=== PATIENT | female | born 1970 | race Caucasian/White ===

== ENCOUNTER 2021-03-25 18:16 | Inpatient (IN) | payer OTHER ==
[~2021-03-25] VITALS: Ht 175.3 cm; Wt 127.2 kg
[2021-03-25 19:26] VITALS: BP 146/73
[2021-03-25 19:41] VITALS: BP 127/69
[2021-03-25 19:49] LABS: BE(vivo) 1.4 mmol/L (-2 to +3); HCO3 25.3 mmol/L (22.0-26.0); pH 7.442 (7.360-7.450); sO2 97.8 % (92.0-98.0)
[2021-03-25 21:53] VITALS: BP 137/71
[2021-03-25 22:25] LABS: ALBUMIN 2.7 g/dL (3.4-5.0); CALCIUM 8.6 mg/dL (8.5-10.1); CREATININE 0.8 mg/dL (0.6-1.0); PHOSPHORUS 4.1 mg/dL (2.5-4.9); POTASSIUM 3.9 mmol/L (3.5-5.1)
[2021-03-25 23:04] VITALS: BP 137/66
[2021-03-25 23:36] VITALS: BP 129/69
--- NOTE | 2021-03-25 23:39 | NUR ---
This RN received patient at 1910. Admitted patient to room 239. Discussed with admitting physician, and called in consults. Patient now on highflow 12 L. Patient alert and oriented and comfortable with plan of care. Will continue to monitor.
[2021-03-26] VITALS (32 sets, daily range): BP systolic 130–196; BP diastolic 69–110
[2021-03-26 05:39] LABS: HEMATOCRIT 36.8 % (37.0-47.0); HEMOGLOBIN 12.4 gm/dL (12.0-15.0); MCH 29.5 pg (26.0-34.0); MCHC 33.6 g/dL (28.0-37.0); MCV 87.9 fL (80.0-100.0); RBC 4.19 mil/uL (4.20-5.00); RDW 12.9 % (10.5-14.5); WBC 5.9 thou/uL (4.0-11.0)
[2021-03-26 05:58] LABS: ALBUMIN 2.6 g/dL (3.4-5.0); CALCIUM 8.3 mg/dL (8.5-10.1); CREATININE 0.6 mg/dL (0.6-1.0); DIRECT BILIRUBIN 0.1 mg/dL (<0.1-0.2); MAGNESIUM 2.1 mg/dL (1.8-2.4); POTASSIUM 4.5 mmol/L (3.5-5.1); TOTAL BILIRUBIN 0.4 mg/dL (0.2-1.0)
--- NOTE | 2021-03-26 09:42 | HC ---
[facility] [address] CONSULTATION Name: NAGI ESCUDERO Room #: 239-P ADM IN M.R.#: [id number] Admission: 03/25/21 Attend Phys: Chris Albrecht MD Discharge: Date of : 66 Report #: [id number] THIS REPORT FOR: cc: ZULMA - No family physician/PCP ZULMA - No family physician/PCP Juan Diego Herrera MD ~ DATE OF SERVICE: 03/26/2021 INFECTIOUS DISEASE CONSULTATION ATTENDING PHYSICIAN: Dr. Albrecht. REASON FOR EVALUATION: COVID-19 infection, complicated by pneumonitis, respiratory failure. HISTORY OF PRESENT ILLNESS: Chart reviewed, the patient was examined. This 50-year-old woman with known diabetes mellitus, also has asthma, more specifically exercise-induced reactive airway disease, who was admitted in transfer due to worsening pneumonitis and respiratory failure with a known diagnosis of COVID-19. She has been unvaccinated. She tested positive on 03/15/2021. Additionally, her daughter did as well. She was admitted there, but they did not have the capabilities of mechanical support, so she was transferred. She has been maintained on a nonrebreather at this point. She had received a broad spectrum therapy including directed to the coronavirus with remdesivir, she is day #4, also Actemra, corticosteroids, in addition to that empiric therapy with antibacterials. She is generally responsive at this time. Denies significant pain. She was found to have a markedly elevated blood sugar on admission. Otherwise, fairly unremarkable. ALLERGIES: None known. MEDICATIONS: Currently include enoxaparin, ascorbic acid, vancomycin, Zosyn, methylprednisolone, zinc, guaifenesin, insulin lispro, famotidine, remdesivir, tocilizumab. PAST MEDICAL HISTORY: As described above, diabetes mellitus type 2, exercise-induced asthma, history of obstructive sleep apnea, chronic back pain, chronic anemia, osteoarthritis, reflux, migraine headaches, obesity and hypertension. SOCIAL HISTORY: Former smoker. No illicit drug use. No ethanol. FAMILY HISTORY: Noncontributory. REVIEW OF SYSTEMS: Otherwise, unremarkable. [facility] [address] [place] [address] CONSULTATION Name: NAGI ESCUDERO Room #: 239-[facility] IN ..#: [id number] Admission: 03/25/21 Attend Phys: Chris Albrecht MD Discharge: Date of : 66 Report #: [id number] PHYSICAL EXAMINATION: GENERAL: She is in moderate distress. She is lucid, not dyspneic at rest, although with significant talking does become mildly dyspneic. She is obese. VITAL SIGNS: Temperature 98.9, pulse 55, respirations 29, blood pressure 130/110. SKIN: Warm, mildly diaphoretic. HEENT: Normocephalic. Extraocular muscles intact. Has high flow nasal cannula in place, 12 liters. NECK: Supple. LUNGS: Expiratory wheezes, scattered crackles. Few coarse sounds. HEART: Borderline bradycardic, appears to be regular. I do not appreciate a murmur. ABDOMEN: Obese, distended, firm, nontender. No peritoneal signs. GENITOURINARY AND RECTAL: Deferred. LABORATORY DATA: This morning, electrolytes: Sodium 139, potassium 4.5, chloride 104, bicarbonate is 25, anion gap of 10, BUN and creatinine 21 and 0.6, glucose of fasting 303. LFTs unremarkable. Albumin of 2.6, total protein 6.0, estimated GFR of 105. CBC: White count of 5.9, H and H 12.4 and 36.8, platelets of 219. Sed rate of 91. Ferritin 594. Procalcitonin less than 0.05. A chest x-ray on admission showed cardiomegaly, bilateral infiltrates. ASSESSMENT AND PLAN: COVID-19 infection, complicated by pneumonitis and respiratory failure. The patient with not well controlled diabetes mellitus, is certainly at risk for clinical deterioration. Continue broad spectrum empiric therapy with antibacterials. She is producing sputum. We will check sputum culture to exclude a secondary bacterial pneumonitis. She is right at the threshold, out of some of the treatment protocols given her positive test on 03/15/2021. We will continue current therapy as prescribed. Supportive care with oxygen therapy. <ELECTRONICALLY SIGNED> By: Juan Diego Herrera MD 03/26/21 0942 0601 0651 Juan Diego Herrera MD /nt
--- NOTE | 2021-03-26 10:41 | NUR ---
PT IS NOT PROGRESSING TOWARDS DISCHARGE AT THIS TIME, CURRENLY ON HIGH FLOW NASAL CANULA AT 15L, LUNG SOUNDS ARE COARSE, DESATS WHILE HAVING COUGHING LOW 87%, R FA IV WAS INFILTRATED, RAC STILL WORKING. PT IS AOX4, DISCUSSED CONCERNS ABOUT GOING BACK HOME TO TAKE CARE OF CASSIE (20YO) RECENT LOSS OF IN AUGUST LAST YEAR. HTN MEDICATION VASOTEC 1.25MG PIV ORDERED AND GIVEN. URINE OUTPUT IS GREATER THAN 30CC/HR SO FAR, BLOOD SUGAR IS RUNNING HIGH, MAY NEED TO BE CHANGED TO MODERATE SCALE DEPENDING ON LUNCH BS. PT HAD TWO RINGS L HAND, ONE RING R HAND, AND FITBIT WHICH WERE TAKEN OFF PER EDEMA/VASOCONSTRICTION CONCERNS BY RN, AND PLACED IN PT'S PERSONAL BAG WITH PATIENT WITNESSING. CENTRAL LINE ORDER GIVEN BY . WILL UPDATE NEEDED
--- NOTE | 2021-03-26 13:11 | NUR ---
VAT CONSULTED FOR PICC PLACEMENT. LEFT UPPER BASILIC VEIN PICC TRIMMED 50CM WITH 1CM EXTERNAL. TIP LOCATION VERIFIED WITH [employer] TECHNOLOGY. PT TOLERATED WELL. RELEASED FOR USE, PER HOSPITAL VASCULAR ACCESS POLICY.
[2021-03-27] VITALS (53 sets, daily range): BP systolic 99–183; BP diastolic 58–106
--- NOTE | 2021-03-27 02:37 | NUR ---
This RN placed patient on bipap. Patient had respiratory rate 30's-40's and was satting consistently 88-90 on optiflow. Desaturated when patient exerts energy or has a coughing fit. Tolerating bipap well so far, will continue to monitor.
[2021-03-27 04:35] LABS: HEMATOCRIT 36.7 % (37.0-47.0); HEMOGLOBIN 12.2 gm/dL (12.0-15.0); MCH 29.4 pg (26.0-34.0); MCHC 33.2 g/dL (28.0-37.0); MCV 88.4 fL (80.0-100.0); RBC 4.16 mil/uL (4.20-5.00); RDW 12.7 % (10.5-14.5); WBC 10.2 thou/uL (4.0-11.0)
[2021-03-27 04:41] LABS: ALBUMIN 2.5 g/dL (3.4-5.0); ANION GAP 9 mmol/L (7-16); BUN 21 mg/dL (7-18); CALCIUM 8.5 mg/dL (8.5-10.1); CHLORIDE 106 mmol/L (98-107); CO2 26 mmol/L (21-32); CREATININE 0.6 mg/dL (0.6-1.0); DIRECT BILIRUBIN < 0.1 mg/dL (<0.1-0.2); GLUCOSE 289 mg/dL (74-106); PHOSPHORUS 3.1 mg/dL (2.5-4.9); POTASSIUM 3.7 mmol/L (3.5-5.1); SGOT 16 U/L (15-37); SGPT 14 U/L (30-65); SODIUM 141 mmol/L (136-145); TOTAL BILIRUBIN 0.3 mg/dL (0.2-1.0); TOTAL PROTEIN 6.3 g/dL (6.4-8.2)
[2021-03-27 05:36] LABS: GLYCOHEMOGLOBIN (HGB A1C) 8.4 % (4.8-5.6)
--- NOTE | 2021-03-27 06:34 | NUR ---
Patient extremely anxious on bipap, needing frequent breaks and reassurance. Patient status and declining and patient is not progressing towards goals. Mechanical ventilation needs increasing.
--- NOTE | 2021-03-27 11:36 | NUR ---
ASSUMED CARE OF PATIENT AT 0600. SHE WAS ON BIPAP 14/6 RATE 10 FIO2 100%. SHE HAS BEEN RESTING AND TRYING TO SLEEP. STATES SHE IS UNCOMFORTABLE, BUT DOES NOT WANT TO TRY THE [facility]. SHE IS UNABLE TO TAKE A DEEP ENOUGH BREATH FOR HER MDI. WILL ADDRESS THE POSSIBLITY OF CHANGING TO A NEBULIZED TREATMENT. AT THIS TIME WILL MONITOR RESPIRATORY STATUS AND NOTIFY DR HERBERT OF ANY DECLINE IN STATUS.
--- NOTE | 2021-03-27 14:13 | NUR ---
PT IS NOT PROGRESSING TOWARDS DISCHARGE AT THIS TIME. PT IS STILL HAVIN DIARRHEA/LOOSE STOOL. HAVING INCREASED OXYGENATION NEEDS IS NOW ON BIPAP SINCE LAST NIGHT, WASN'T ABLE TO GET ANY SLEEP, IN OBVIOUS STATE OF AGITATION/ANXIETY AT THE BEGINNING OF THE SHIFT, PRESENTING SYMPTOMS OF HYPOXIA. DISCUSSED W/ REGARDING CARE PLAN FOR THE PT, STATED TO GIVE A CALL WHEN PT VOCALIZES SHE IS NO LONGER ABLE TO BREATHE EFFICIENTLY. PT HAS BEEN ORDERED PRECEDEX AND CARDENE WAS STARTED OVERNIGHT, IN CONJUNCTION BLOOD PRESSURE IS BETTER CONTROLLED. PT IS SEEN SLEEPING FOR THE MAJORITY OF THE SHIFT, UNABLE TO GET OFF BIPAP FOR LONG. ASKED IF PT WANTS RN TO CALL THE DTR AT HOME, PT REFUSED. WILL UPDATE NEEDED
[2021-03-28] VITALS (37 sets, daily range): BP systolic 101–167; BP diastolic 33–95
[2021-03-28 04:25] LABS: HEMATOCRIT 36.5 % (37.0-47.0); HEMOGLOBIN 12.4 gm/dL (12.0-15.0); MCH 29.2 pg (26.0-34.0); MCV 85.8 fL (80.0-100.0); RBC 4.26 mil/uL (4.20-5.00); RDW 12.5 % (10.5-14.5); WBC 12.5 thou/uL (4.0-11.0)
[2021-03-28 04:26] LABS: CALCIUM 8.2 mg/dL (8.5-10.1); CREATININE 0.7 mg/dL (0.6-1.0); POTASSIUM 3.3 mmol/L (3.5-5.1)
[2021-03-28 04:53] LABS: BE(vivo) -1.6 mmol/L (-2 to +3); HCO3 22.1 mmol/L (22.0-26.0); PCO2 34.5 mmHg (35.0-45.0); PO2 68.3 mmHg (80.0-100.0); pH 7.425 (7.360-7.450); sO2 94.2 % (92.0-98.0)
--- NOTE | 2021-03-28 05:10 | NUR ---
ASSUMED CARE OF PATIENT AT 1900. PATIENT REMAINS ON BIPAP ALL NIGHT, TOLERATING WELL. PATIENT NEEDS A LOT OF ENCOURAGEMENT AND REEDUCATION. EMOTIONAL SUPPORT PROVIDED. PATIENT GAVE THIS RN PERMISSION TO SPEAK WITH CLEMENTE CORNEJO UPDATED AND POC DISCUSSED. NOT PROGRESSIN TOWARDS POC GOALS.
--- NOTE | 2021-03-28 10:37 | NUR ---
PATIENT INTUBATED AT 0958.
[2021-03-28 12:09] LABS: BE(vivo) -2.8 mmol/L (-2 to +3); HCO3 22.9 mmol/L (22.0-26.0); PCO2 43.7 mmHg (35.0-45.0); PO2 99.3 mmHg (80.0-100.0); pH 7.338 (7.360-7.450); sO2 97.2 % (92.0-98.0)
--- NOTE | 2021-03-28 16:03 | NUR ---
50-year-old female who was a direct admission from [facility] for worsening respiratory status secondary to COVID-19 pneumonia. Noted as not vaccinated per the medical record. The patient tested positive on 03-15-21 and states that her daughter who lives with the patient also tested positive for Covid 19 as well and reports the daughter works in daycare where the daughter reports numerous outbreaks of staff and children with Covid. Upon admission the patient was started on IV Remdesiver, and IV steroids. Notably patient was intubated on 03-28-21 in the AM at 0958. Daughter Yeimi listed as next of kin/contact at [phone]. Attempted to reach x4 without success. Noted intubation and that nursing had spoken to daughter early AM of 03-28-21, did not leave a VM. CM will follow for discharge needs.
--- NOTE | 2021-03-28 17:34 | NUR ---
PATIENT NOT PRORESSING TOWARDS THE PLAN OF CARE. INTUBATED/SEDATED WITH FIO2 AT 100%. PATIENT'S FRIEND, CLEMENTE, WAS INFORMED OF THE INTUBATION. PATIENT'S DAUGHTER, ELI, WAS CALLED MULTIPLE TIMES TODAY POST-INTUBATION BUT THIS RN NEVER GOT A RESPONSE. WILL ATTEMPT TO CALL AGAIN.
[2021-03-29] VITALS (24 sets, daily range): BP systolic 99–164; BP diastolic 51–79
[2021-03-29 04:47] LABS: BE(vivo) -4.8 mmol/L (-2 to +3); HCO3 21.3 mmol/L (22.0-26.0); PCO2 43.3 mmHg (35.0-45.0); PO2 70.5 mmHg (80.0-100.0); sO2 92.7 % (92.0-98.0)
[2021-03-29 05:13] LABS: HEMATOCRIT 33.4 % (37.0-47.0); HEMOGLOBIN 11.2 gm/dL (12.0-15.0); MCH 29.3 pg (26.0-34.0); MCHC 33.6 g/dL (28.0-37.0); MCV 87.3 fL (80.0-100.0); PLATELET COUNT 246 thou/uL (150-400); RBC 3.83 mil/uL (4.20-5.00); RDW 12.6 % (10.5-14.5); WBC 20.3 thou/uL (4.0-11.0)
[2021-03-29 05:33] LABS: ALBUMIN 2.2 g/dL (3.4-5.0); CALCIUM 7.8 mg/dL (8.5-10.1); CREATININE 0.7 mg/dL (0.6-1.0); POTASSIUM 3.3 mmol/L (3.5-5.1); TOTAL BILIRUBIN 0.3 mg/dL (0.2-1.0); TOTAL PROTEIN 5.3 g/dL (6.4-8.2)
[2021-03-29 09:21] LABS: ABSOLUTE NEUTROPHILS 19.5 thou/uL (1.4-8.2); PLATELET ESTIMATE NORMAL
--- NOTE | 2021-03-29 09:29 | NUR ---
When IVF stopped, add water flush 250ml every 6hr.
--- NOTE | 2021-03-29 11:37 | EKG ---
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
--- NOTE | 2021-03-29 11:37 | NUR ---
Reviewed case in 03-29-21 LOS and plan for continued ICU care. CM will continue to follow.
--- NOTE | 2021-03-29 18:38 | NUR ---
PT IS NOT PROGRESSING TOWARDS DISCHARGE, EVIDENCED INCREASING NEED FOR SEDATION. PT TOLERATED THE PRONING WELL, WAS DONE BY THREE FOUR NURSE AND 1 RT. TUBE FEEDING RATE INCREASED TO 40 THIS SHIFT, PT IS TOLERATING OKAY, STIL CURRENTLY RUNNING THE SAME VENTILATOR SETTING SINCE THE MORNING. R SIDE OF THE LUNG IS MORE CLEAR THAN THE LEFT SO PT WAS TURNED TO THE R SIDE MORE FREQUENTLY TODAY. DTR OF THE PT CALLED AT THE END OF THE SHIFT, RN WAS BUSY IN THE ROOM WAS NOT ABLE TO ATTEND, CALLED BACK SOON POSSIBLE BUT NO ANSWER AFTER MULTIPLE TRIES. STILL ON THE INSULIN DRIP, WITH THE INCREASE OF TUBE FEED RATE, HAVING TO READJUST THE INSULIN GTT RATE. CONTINUING TO MONITOR AND WILL UPDATE NEEDED
--- NOTE | 2021-03-29 21:32 | NUR ---
ASSUMED CARE AT 1900. SPOKE TO PT'S FRIEND CLEMENTE AT 2009, GAVE UPDATE ON PT'S CONDITION, NO CONCERNS NOTED. PLAN TO SUPINATE ABOUT 2230. HAVE INCREASED INSULIN GTT TWICE FOR BLOOD SUGARS IN UPPER 200'S. WILL CONTINUE TO MONITOR.
[2021-03-30] VITALS (23 sets, daily range): BP systolic 99–134; BP diastolic 53–81
[2021-03-30 04:29] LABS: CREATININE 0.9 mg/dL (0.6-1.0)
[2021-03-30 04:38] LABS: HEMATOCRIT 32.7 % (37.0-47.0); MCH 29.8 pg (26.0-34.0); MCHC 33.7 g/dL (28.0-37.0); MCV 88.5 fL (80.0-100.0); RBC 3.69 mil/uL (4.20-5.00); RDW 12.9 % (10.5-14.5); WBC 18.2 thou/uL (4.0-11.0)
--- NOTE | 2021-03-30 12:56 | NUR ---
PATIENT PRONED AT 1240. 02 SATS MAINTAINED ABOVE 90% THROUGHOUT.
--- NOTE | 2021-03-30 17:29 | NUR ---
PATIENT'S DAUGHTER, ELI, CALLED FROM [phone] AND SHE WAS UPDATED AND EDUCATED ON THE PATIENT'S CONDITION AND PLAN OF CARE. PATIENT SLOWLY PROGRESSING TOWARDS THE PLAN OF CARE EVIDENCED BY DECREASED OXYGEN/SEDATION REQUIREMENTS.
[2021-03-31] VITALS (25 sets, daily range): BP systolic 101–169; BP diastolic 58–102
[2021-03-31 04:34] LABS: BE(vivo) 2.3 mmol/L (-2 to +3); PCO2 54.7 mmHg (35.0-45.0); PO2 68.1 mmHg (80.0-100.0); pH 7.343 (7.360-7.450); sO2 92.3 % (92.0-98.0)
[2021-03-31 05:20] LABS: HEMATOCRIT 34.8 % (37.0-47.0); HEMOGLOBIN 11.5 gm/dL (12.0-15.0); MCH 29.2 pg (26.0-34.0); MCHC 33.1 g/dL (28.0-37.0); MCV 88.3 fL (80.0-100.0); PLATELET COUNT 229 thou/uL (150-400); RBC 3.94 mil/uL (4.20-5.00); RDW 13.1 % (10.5-14.5); WBC 18.1 thou/uL (4.0-11.0)
[2021-03-31 05:23] LABS: ALBUMIN 2.1 g/dL (3.4-5.0); CREATININE 0.7 mg/dL (0.6-1.0); POTASSIUM 4.3 mmol/L (3.5-5.1); TOTAL BILIRUBIN 0.3 mg/dL (0.2-1.0); TOTAL PROTEIN 5.1 g/dL (6.4-8.2)
--- NOTE | 2021-03-31 06:14 | NUR ---
PT TOLERATED PRONE TO SUPINE VERY WELL, WOKE UP SLIGHTLY AFTER TURN, BUT DID NOT LAST LONGER THAN SEVERAL MINUTES. LUNGS DIMINISHED, STRONG COUGH AND GAG, MODERATE ORAL SECRETION, THIN AND STRINGY. SR, BP STABLE
[2021-03-31 10:20] LABS: ABSOLUTE NEUTROPHILS 16.8 thou/uL (1.4-8.2); PLATELET ESTIMATE NORMAL
--- NOTE | 2021-03-31 19:21 | NUR ---
1800HRS - CONTINUE CARE ORDERED. 1239HRS - PT'S FRIEND GEORGE CALLED AND UPDATED 16OOHRS - PT PRONED. 1800HRS - PT'S DAUGHTER CALLED
[2021-04-01] VITALS (18 sets, daily range): BP systolic 108–139; BP diastolic 53–83
--- NOTE | 2021-04-01 06:43 | NUR ---
PT TOLERATED SUPINATION WELL, REQUIRED INCREASE IN SEDATION WHILE PRONED SHE STARTED MOVING HEAD BACK AND FORTH AND PUSHING UP ON BED. TOLERATING TF WELL, VSS, ADEQUATE URINE OUTPUT. MULTIPLE DIFFERENT REPORTS BETWEEN RT AND RNS REGARDING WHERE ETT SHOULD BE AT LIP, CXR OBTAINED TO ENSURE APPROPRIATE PLACEMENT
--- NOTE | 2021-04-01 18:59 | NUR ---
1600 HRS- PT PRONE.
[2021-04-02] VITALS (18 sets, daily range): BP systolic 118–161; BP diastolic 54–81
[2021-04-02 05:00] LABS: HEMATOCRIT 35.5 % (37.0-47.0); HEMOGLOBIN 11.8 gm/dL (12.0-15.0); MCH 29.5 pg (26.0-34.0); MCHC 33.2 g/dL (28.0-37.0); MCV 88.8 fL (80.0-100.0); RDW 12.7 % (10.5-14.5); WBC 12.9 thou/uL (4.0-11.0)
[2021-04-02 05:13] LABS: CALCIUM 8.1 mg/dL (8.5-10.1); CREATININE 0.7 mg/dL (0.6-1.0); POTASSIUM 4.8 mmol/L (3.5-5.1)
--- NOTE | 2021-04-02 06:47 | NUR ---
No acute events overnight. Pt supined at 0400 with no problems. Pt remains intubated and sedated.
--- NOTE | 2021-04-02 18:00 | NUR ---
1315- ASSUMED CARE OF THIS PATIENT. PATIENT PRONED AT 1340, TOLERATED WELL. OXYGENATING WELL WITH CURRENT SETTINGS. NO ACUTE CHANGES NOTED.
[2021-04-03] VITALS (23 sets, daily range): BP systolic 107–157; BP diastolic 59–87
[2021-04-03 05:36] LABS: GLYCOHEMOGLOBIN (HGB A1C) 8.7 % (4.8-5.6)
--- NOTE | 2021-04-03 18:16 | NUR ---
0900 HRS - FRIEND GEORGE CALLED AND INFORMED. SETTING CHANGED, 35% 1605 HRS - PT PRONED.
--- NOTE | 2021-04-03 20:00 | NUR ---
PTS DAUGHTER CALLED AND GIVEN A COND REPORT.
[2021-04-04] VITALS (11 sets, daily range): BP systolic 106–166; BP diastolic 57–87
--- NOTE | 2021-04-04 05:00 | NUR ---
PT REPOSITIONED TO BACK FROM PRONING FOR 12 HOURS.
[2021-04-04 05:27] LABS: BE(vivo) 14.5 mmol/L (-2 to +3); HCO3 41.3 mmol/L (22.0-26.0); PCO2 60.3 mmHg (35.0-45.0); PO2 77.6 mmHg (80.0-100.0); pH 7.453 (7.360-7.450); sO2 95.7 % (92.0-98.0)
[2021-04-04 05:46] LABS: HEMATOCRIT 35.8 % (37.0-47.0); MCH 29.7 pg (26.0-34.0); MCHC 33.6 g/dL (28.0-37.0); MCV 88.5 fL (80.0-100.0); PLATELET COUNT 176 thou/uL (150-400); RBC 4.04 mil/uL (4.20-5.00); RDW 12.8 % (10.5-14.5); WBC 8.7 thou/uL (4.0-11.0)
--- NOTE | 2021-04-04 06:00 | NUR ---
REMAINS INTUBATED AND SEDATED. VSS FIO2 35 % 2000 CC UO THIS SHIFT. DEUCE TUBE FEEDING. PROGRESSING TOWARD GOALS. WILL CONT TO MONITOR
[2021-04-04 06:16] LABS: ALBUMIN 2.7 g/dL (3.4-5.0); CALCIUM 8.3 mg/dL (8.5-10.1); CREATININE 0.6 mg/dL (0.6-1.0); POTASSIUM 4.6 mmol/L (3.5-5.1); TOTAL BILIRUBIN 0.4 mg/dL (0.2-1.0); TOTAL PROTEIN 5.6 g/dL (6.4-8.2)
[2021-04-04 08:43] LABS: ABSOLUTE NEUTROPHILS 6.6 thou/uL (1.4-8.2); PLATELET ESTIMATE NORMAL
--- NOTE | 2021-04-04 16:33 | NUR ---
1135HRS - TUBE FEED CHANGE. 1435HRS - PT'S ESA ROBERTO CALLED AND WAS UPDATED ON PT'S STATUS. REPORTED THAT SHE WILL UPDATE PT'S DAUGHTER. 1630HRS - PT PRONED. HOLISTERED LEFT ON PT FACE TO SUPPORT ETT PER DR. ALBARRAN ON 04/03 1021HRS NOTES. "PLEASE CHANGE TAPE TO HOLISTER". WITNESSED WITH RT OF THE DAY THAT DR. ALBARRAN FELT THE TAPE WAS CUTTING INTO PT'S FACE DURING PRONE DUE TO SWELLING TO FACE.
--- NOTE | 2021-04-04 21:45 | NUR ---
This RN spoke to Yeimi Rivas, suad daugher at 2100. Discussed patient status and plan of care. Expressed desire to visit mother.
--- NOTE | 2021-04-04 21:46 | NUR ---
This RN spoke with Dr. Herrera regarding isolation status. Received orders to DC enhanced precautions.
[2021-04-05] VITALS (21 sets, daily range): BP systolic 95–188; BP diastolic 50–108
[2021-04-05 05:11] LABS: ANION GAP < 0 mmol/L (7-16); BUN 27 mg/dL (7-18); CALCIUM 8.4 mg/dL (8.5-10.1); CHLORIDE 100 mmol/L (98-107); CO2 42 mmol/L (21-32); CREATININE 0.6 mg/dL (0.6-1.0); GLUCOSE 213 mg/dL (74-106); POTASSIUM 4.6 mmol/L (3.5-5.1); SODIUM 138 mmol/L (136-145)
[2021-04-05 05:24] LABS: HEMATOCRIT 37.3 % (37.0-47.0); HEMOGLOBIN 12.5 gm/dL (12.0-15.0); MCH 29.5 pg (26.0-34.0); MCHC 33.4 g/dL (28.0-37.0); MCV 88.3 fL (80.0-100.0); RBC 4.23 mil/uL (4.20-5.00); RDW 12.8 % (10.5-14.5); WBC 10.8 thou/uL (4.0-11.0)
--- NOTE | 2021-04-05 06:41 | NUR ---
Patient un-proned at 0300 this morning. Tolerated well. Patient is progressing towards goals.
--- NOTE | 2021-04-05 10:48 | NUR ---
ASSUMED CARE OF PT AT 0700 DR. SANCHEZ AT BEDSIDE AT 0830, NO NEW ORDERS GIVEN
--- NOTE | 2021-04-05 23:38 | NUR ---
This RN did a sedation vacation on patient for about 20 minutes. Patient became extemely hyptertensive, with systolics in the 190's-200's. Patient also became tachycardiac with HRs in the 100's-110's. RN had to turn sedation back on and patient stabilized. Lowering down sedatives and will continue to monitor.
[2021-04-06] VITALS (13 sets, daily range): BP systolic 95–195; BP diastolic 54–100
[2021-04-06 05:02] LABS: CALCIUM 8.3 mg/dL (8.5-10.1); CREATININE 0.6 mg/dL (0.6-1.0); POTASSIUM 4.4 mmol/L (3.5-5.1)
[2021-04-06 05:13] LABS: HEMATOCRIT 35.5 % (37.0-47.0); MCH 29.8 pg (26.0-34.0); MCHC 33.8 g/dL (28.0-37.0); MCV 88.2 fL (80.0-100.0); RBC 4.02 mil/uL (4.20-5.00); WBC 8.5 thou/uL (4.0-11.0)
[2021-04-06 09:36] LABS: BE(vivo) 14.3 mmol/L (-2 to +3); HCO3 40.1 mmol/L (22.0-26.0); PCO2 53.5 mmHg (35.0-45.0); PO2 63.2 mmHg (80.0-100.0); pH 7.493 (7.360-7.450); sO2 93.4 % (92.0-98.0)
--- NOTE | 2021-04-06 19:57 | NUR ---
This RN spoke to Yeimi, daughter, at 1945. Updated on plan of care and patient status.
--- NOTE | 2021-04-06 20:50 | NUR ---
This RN did a sedation vacation for 20 minutes. Patient gets tachypneic breathing in the 30's, hyperensive with systolics in the 190's. Patient also tachycardiac HR in he 100's-110's. Patient will open eyes spontaneously but will not track. Inconsistently follows commands, but will move all extremities. Lifts head forward and body. Tries to talk and mouth words over ETT. RN had to turn sedation back on but will continue to wean down.
[2021-04-07] VITALS (45 sets, daily range): BP systolic 89–185; BP diastolic 42–95
[2021-04-07 05:28] LABS: HEMATOCRIT 33.6 % (37.0-47.0); HEMOGLOBIN 11.3 gm/dL (12.0-15.0); MCH 29.9 pg (26.0-34.0); MCHC 33.7 g/dL (28.0-37.0); MCV 88.9 fL (80.0-100.0); RBC 3.78 mil/uL (4.20-5.00); RDW 13.5 % (10.5-14.5); WBC 9.1 thou/uL (4.0-11.0)
[2021-04-07 05:46] LABS: CALCIUM 8.5 mg/dL (8.5-10.1); CREATININE 0.6 mg/dL (0.6-1.0); POTASSIUM 3.9 mmol/L (3.5-5.1)
--- NOTE | 2021-04-07 18:48 | NUR ---
PATIENT PROGRESSING WELL. TOLERATED 1 HOUR AND 15 MIN OF CPAP TRIAL. PATIENT'S DAUGHTER AND FRIEND UPDATED ON PATIENT STATUS. NOTIFIED OF POSSIBILITY OF TRACHEOSTOMY NEED NEXT WEEK, DEPENDING ON HOW CPAP TRIALS GO OVER THE WEEKEND.
[2021-04-08] VITALS (37 sets, daily range): BP systolic 86–188; BP diastolic 43–95
[2021-04-08 04:22] LABS: ANION GAP < 0 mmol/L (7-16); BUN 29 mg/dL (7-18); CALCIUM 8.4 mg/dL (8.5-10.1); CHLORIDE 98 mmol/L (98-107); CO2 40 mmol/L (21-32); CREATININE 0.6 mg/dL (0.6-1.0); GLUCOSE 227 mg/dL (74-106); POTASSIUM 3.9 mmol/L (3.5-5.1); SODIUM 137 mmol/L (136-145)
[2021-04-08 04:23] LABS: HEMATOCRIT 33.3 % (37.0-47.0); HEMOGLOBIN 11.2 gm/dL (12.0-15.0); MCH 29.7 pg (26.0-34.0); MCHC 33.7 g/dL (28.0-37.0); MCV 87.9 fL (80.0-100.0); RBC 3.79 mil/uL (4.20-5.00); RDW 13.5 % (10.5-14.5); WBC 8.4 thou/uL (4.0-11.0)
[2021-04-08 09:12] LABS: BE(vivo) 12.9 mmol/L (-2 to +3); HCO3 37.7 mmol/L (22.0-26.0); PCO2 48.4 mmHg (35.0-45.0); PO2 78.6 mmHg (80.0-100.0); pH 7.509 (7.360-7.450); sO2 96.5 % (92.0-98.0)
--- NOTE | 2021-04-08 14:00 | NUR ---
Chart review, during los and unite rounds. Vent, cpap trial. Possible will go for trach on sunday or sun next week. Nutritional support. COVID +, but out of Isolation. Will cont following as needed for dc needs.
[2021-04-08 16:09] LABS: BE(vivo) 13.2 mmol/L (-2 to +3); HCO3 38.1 mmol/L (22.0-26.0); PCO2 48.9 mmHg (35.0-45.0); PO2 78.5 mmHg (80.0-100.0); pH 7.509 (7.360-7.450); sO2 96.4 % (92.0-98.0)
--- NOTE | 2021-04-08 17:30 | NUR ---
1115 Patient's friend updated on pt condition. pt tolerated 1 hour of CPAP trial this am. will attempt longer trial this afternoon. 1200- Tube feeds resumed per Dr. Joseph. 1730 patient tolerated CPAP trial with change from Propofol to Precedex. patient more awake/alert this afternoon.
--- NOTE | 2021-04-08 22:00 | NUR ---
UPDATED PT DAUGHTER ON PT CONDITION AND PLAN OF CARE. ALL QUSTIONS ANSWERED
[2021-04-09] VITALS (61 sets, daily range): BP systolic 102–182; BP diastolic 55–100
[2021-04-09 03:15] LABS: HEMATOCRIT 34.9 % (37.0-47.0); HEMOGLOBIN 11.8 gm/dL (12.0-15.0); MCH 29.7 pg (26.0-34.0); MCHC 33.8 g/dL (28.0-37.0); MCV 87.8 fL (80.0-100.0); RBC 3.97 mil/uL (4.20-5.00); RDW 13.6 % (10.5-14.5); WBC 8.8 thou/uL (4.0-11.0)
[2021-04-09 03:26] LABS: CALCIUM 8.6 mg/dL (8.5-10.1); CREATININE 0.6 mg/dL (0.6-1.0); POTASSIUM 3.1 mmol/L (3.5-5.1)
[2021-04-09 04:40] LABS: BE(vivo) 13.3 mmol/L (-2 to +3); HCO3 38.4 mmol/L (22.0-26.0); PCO2 50.1 mmHg (35.0-45.0); PO2 107.8 mmHg (80.0-100.0); pH 7.502 (7.360-7.450); sO2 98.2 % (92.0-98.0)
[2021-04-09 08:31] LABS: BE(vivo) 10.7 mmol/L (-2 to +3); HCO3 35.2 mmol/L (22.0-26.0); PCO2 46.1 mmHg (35.0-45.0); PO2 95.7 mmHg (80.0-100.0); pH 7.501 (7.360-7.450); sO2 97.7 % (92.0-98.0)
--- NOTE | 2021-04-09 15:24 | NUR ---
Patient has been off of sedatives (Fentanyl and Versed) per Dr. Atkinson orders in order to potentially extubate. Patient is restless but able to be reoriented. Precedex titrated up as needed, see eMAR. patient;s daughter is at bedside and updated on plan of care.
--- NOTE | 2021-04-09 17:00 | NUR ---
Patient was extubated at 1555. Doing well with Face shield at 50% FiO2 and 15L. Patient is very confused, reoriented frequently by nursing staff and family. Pressure injury noted to right cheek which was hidden under anchor fast. family made aware of skin breakdown.
[2021-04-10] VITALS (33 sets, daily range): BP systolic 91–145; BP diastolic 49–90
[2021-04-10 03:14] LABS: HEMATOCRIT 36.2 % (37.0-47.0); HEMOGLOBIN 12.2 gm/dL (12.0-15.0); MCH 29.8 pg (26.0-34.0); MCHC 33.8 g/dL (28.0-37.0); MCV 87.9 fL (80.0-100.0); RBC 4.11 mil/uL (4.20-5.00); RDW 13.1 % (10.5-14.5); WBC 7.6 thou/uL (4.0-11.0)
[2021-04-10 03:30] LABS: CALCIUM 8.6 mg/dL (8.5-10.1); CREATININE 0.5 mg/dL (0.6-1.0); POTASSIUM 3.3 mmol/L (3.5-5.1)
--- NOTE | 2021-04-10 11:14 | NUR ---
Patient's daughter here to visit. Updated on plan of care. Actively titrating precedex down. Patient on 4L NC at this time.
[2021-04-11] VITALS (25 sets, daily range): BP systolic 114–166; BP diastolic 57–102
[2021-04-11 04:03] LABS: HEMATOCRIT 34.8 % (37.0-47.0); HEMOGLOBIN 12.1 gm/dL (12.0-15.0); MCHC 34.7 g/dL (28.0-37.0); MCV 86.6 fL (80.0-100.0); RBC 4.02 mil/uL (4.20-5.00); RDW 13.4 % (10.5-14.5); WBC 6.7 thou/uL (4.0-11.0)
[2021-04-11 04:29] LABS: CALCIUM 8.6 mg/dL (8.5-10.1); CREATININE 0.6 mg/dL (0.6-1.0); POTASSIUM 3.3 mmol/L (3.5-5.1)
--- NOTE | 2021-04-11 06:31 | NUR ---
PT REMAIN ALERT AND ORIENT TIMES 1-2. ABLE TO STATE HER NAME AND PLACE. PT CONSTANTLY ASK ABOUT HER DAUGHTER TORY. ALL OF HER CONCERNS, WORRIES AND QUESTIONS SURROUNDED HER DAUGHTER. THIS RN PHONED TORY SO THAT PT WOULD BE ABLE TO SPEAK WITH HER AND TO ASSURE THE PT THAT ALL WAS WELL WITH HER. PT WAS SATISFIED IN SPEAKING WITH HER DAUGHTER AND SOON WENT TO SLEEP FOR 2HRS. PRECEDEX BEING TITRATED SLOWLY. HALDOL WAS GIVEN ONCE DURING THE NIGHT. SR PER MONITOR. SLOW PROGRESS TOWARDS DC GOALS. WILL CONTINUE TO MONITOR.
[2021-04-11 08:28] LABS: MAGNESIUM 2.1 mg/dL (1.8-2.4); PHOSPHORUS 3.7 mg/dL (2.5-4.9)
--- NOTE | 2021-04-11 18:45 | NUR ---
PT IS NOT PROGRESSING TOWARDS DISCHARGE AT THIS TIME, PT WAS SEEN BY PT/OT WAS NOT ABLE TO PARTICIPATE WELL DUE TO WEAKNESS, PT IS HAVING DIFFICULTIES MOVING HER L ARM, WAS ABLE TO MOVE THE L WRIST THOUGH. PT IS ALSO EXPERIENCING DELIRIUM STILL, PRECEDEX HAS BEEN WEANED OFF, TRANSFER ORDERS WERE GIVEN AWAITNIG BED AT THIS TIME. PT IS TEARFUL, PT IS ALSO INCONTINENT, PASSING MULTIPLE LIQUID BOWEL MOVEMENT, WHICH WAS PRESENT PRIOR TO ADMISSION, TPN WILL BE DISCONTINUED AFTER THIS LAST BAG, SLT SAW THE PT, PT WAS PLACED ON A DIET, THOUGH SHE NEEDS TO BE FED NOW. SHE REFUSED DINNER AT THIS TIME, TOLERATED ICECHIPS, PT DOES HAVE ALL FOUR SIDE RAILS ON, PT IS UNABLE TO CATCH HER SELF IN THE CASE OF A FALL SO SIDERAILS ARE ON FOR PT SAFETY NOT RESTRAINT REASONS. PT REQUIRES MORE STRENGTH OR POSSIBLE REHAB THINKING OF DISCHARGE. RN SIGNING OFF AT THIS TIME.
[2021-04-12] VITALS (25 sets, daily range): BP systolic 131–178; BP diastolic 74–109
[2021-04-12 05:53] LABS: HEMATOCRIT 39.6 % (37.0-47.0); HEMOGLOBIN 13.5 gm/dL (12.0-15.0); MCH 29.8 pg (26.0-34.0); MCV 87.6 fL (80.0-100.0); RBC 4.52 mil/uL (4.20-5.00); RDW 14.1 % (10.5-14.5); WBC 10.9 thou/uL (4.0-11.0)
[2021-04-12 06:15] LABS: CREATININE 0.6 mg/dL (0.6-1.0); POTASSIUM 3.2 mmol/L (3.5-5.1)
--- NOTE | 2021-04-12 08:05 | NUR ---
ASSUME CARE 1900. PT/VITALS STABLE. BP SOMETIMES RUN HIGH, A/O X 4 BUT HAS EPISODES OF CONFUSION AND FORGETFULNESS. DENIES ANY PAIN. POOR TOLERANCE TO ACTIVITY/ WILL BENEFIT FROM PT/OT EVAL AND TREATMENT. COMMUNICATES NEEDS APPROPRIATELY. FREQUENT DIARRHEA NOTED THROUGH THE NIGHT. ELECTROLYTE PROTOCOL IN PLACE. ASSESSMENT CHARTED. PROGRESSING WELL TOWARDS PLAN OF CARE. PLAN IS A POSSIBLE DISCHARGE TO STEP DOWN UNIT FOR CONTINUUM OF CARE. WILL CONTINUE TO MONITOR AND FOLLOW WITH POC
--- NOTE | 2021-04-12 15:16 | NUR ---
ALEXANDRA reviewed chart and spoke with nursing and attending physician. Pt with orders to transfer out of ICU to cc/tele. Pt is out of Enhanced Isolation precautions. Pt was extubated and is on 3L of O2 via NC. Pt is on IV abx and IV steroids. Psych consult completed today. PT/OT have started working with pt. ALEXANDRA left voice message for pt's dtr, Yeimi, to provide update and discuss discharge plans. Contact info for ALEXANDRA provided. ALEXANDRA discussed case with attending physician and 5N rn rehabilitation. 5N consult ordered to evaluate pt for possible inpt acute rehab. Will need insurance auth for post-acute placement. ALEXANDRA is following to assist as needed with discharge planning.
--- NOTE | 2021-04-12 21:12 | NUR ---
PT IS PROGRESSING TOWARDS DISCHARGE, PT SEEN BY PT/OT TODAY WELL FOR PSYCHOLOGY AND 5N REHAB STAFF MEMBER FOR ASSESSMENT OF CURRENT NEEDS. PT STILL HAD DIARRHEA TODAY AND WAS CAUGHT UP ON POTASSIUM LEVEL BY THE END OF THE SHIFT. FMS STILL IN PLACE. PT IS BECOMING MORE DELIRIOUS/WITHDRAWN/FLAT ICU ADMISSION PROGRESSES AND IS NEEDING PERSONAL CONTACT WITH FAMILY MEMBERS AND REHAB WORKUP FOR PROPER MANAGMENT OF CARE. AWAITING BED AT THIS TIME. RN SIGNING OFF
[2021-04-13] VITALS (7 sets, daily range): BP systolic 110–164; BP diastolic 70–96
--- NOTE | 2021-04-13 00:09 | NUR ---
ASSUMED PATIENT CARE AT APPROXIMATELY 0000 A TRANSFER FROM ICU. PATIENT IS ALERT AND ORIENTED TO SELF, SITUATION ONLY AND IS PLEASANTLY CONFUSED. BREATHING STABLE ON TWO LITERS NASAL CANNULA EVIDENCED BY ASSESSMENT AND SPOT OXYGENATION CHECK.
--- NOTE | 2021-04-13 00:23 | NUR ---
PT ORIENTED X2-3. SHE HAS SOME CONFUSION BUT IS COOPERATIVE AND PLEASANT. DENIES ANY PAIN. SPO2 >90% ON 2L NC. AROUND 2029, PT'S DTR (ELI) CALLED UNIT FOR UPDATE. PT HAD TRANSFER ORDERS TO CCT UNIT. REPORT GIVEN TO RECEIVING RN. PT TRANSFERED OUT OF ICU AROUND 2344. PT DID NOT WANT HER DTR CALLED TONIGHT WITH UPDATE OF ROOM CHANGE. RN OSEAS WILL CALL DTR IN THE MORNING. PROGRESSING SLOWLY TOWARD POC GOALS.
--- NOTE | 2021-04-13 14:08 | NUR ---
REQUEST FOR INSURANCE AUTHORIZATION HAS BEEN FAXED TO [facility] AT [facility] WITH PENDING REF # [id number]. INFORMATION SENT TO [phone]. [employer]'S CONTACT # IS [phone] OPT 1 EXT [id number]. [employer] HAS BEEN NOTIFIED.
--- NOTE | 2021-04-13 17:28 | NUR ---
5N accepted clinically they are in process of submitting for auth.
--- NOTE | 2021-04-13 18:01 | NUR ---
NAGI HAD A PRODUCTIVE DAY. SHE WORKED WITH PT, OT AND SPEECH THERAPY. DIET ADVANCED TO REGULAR CONSISTENCY AND THIN LIQUIDS. SHE WAS ABLE TO PROGRESS THROUGHOUT THE DAY TO FEED HERSELF, EVENTUALLY TO EVEN USE A FORK WITH HER RIGHT HAND. SHE WAS INTERMITTENTLY CONFUSED, BUT WOULD BE REDIRECTABLE AND REMEMBER CONVERSATIONS FROM EARLIER IN THE DAY. SHE WAS EMOTIONAL AT TIMES WHE SHE "DIDN'T KNOW WHAT TO BE DOING." I REITERATED OUR GOALS OF THE DAY TO WORK ON ROM IN BED WHILE NOT WORKING WITH THERAPY, TO BE ABLE TO FEED HERSELF AND EVENTUALLY TO BRUSH TEETH. SHE REQUIRED SET UP ON TASKS, BUT WAS MOTIVATED TO PERFORM ON HER OWN WITH MIN ASSIST AT TIMES. REMAINS ON 2L NC. [place]INGTON CATHETER AND RECTAL TUBE REMAIN IN PLACE. I UPDATED HER FRIEND, CLEMENTE, OVER THE PHONE TWICE AND ASSISTED PATIENT TO CALL HER USING HER OWN CELL PHONE.
[2021-04-14 04:16] VITALS: BP 141/81
[2021-04-14 06:05] LABS: HEMATOCRIT 37.8 % (37.0-47.0); HEMOGLOBIN 12.5 gm/dL (12.0-15.0); MCH 29.3 pg (26.0-34.0); MCHC 33.1 g/dL (28.0-37.0); MCV 88.5 fL (80.0-100.0); RBC 4.28 mil/uL (4.20-5.00); RDW 14.7 % (10.5-14.5); WBC 8.1 thou/uL (4.0-11.0)
[2021-04-14 06:23] LABS: CALCIUM 8.9 mg/dL (8.5-10.1); CREATININE 0.6 mg/dL (0.6-1.0); POTASSIUM 3.2 mmol/L (3.5-5.1)
[2021-04-14 07:58] VITALS: BP 166/78
[2021-04-14 11:32] VITALS: BP 128/83
--- NOTE | 2021-04-14 13:50 | NUR ---
PT ALERT AND ORIENTED X4, CONFUSED AT TIMES AND ANXIOUS. DENIES ANY CHEST PAIN. ON 2L OF OXYGEN, NO SIGNS OF DISTRESS NOTED. PT TAKEN DOWN FOR A HEAD CT. GAVE PT A BATH, BED CHANGED, PT STATED FEELING BETTER. FALL PRECUATIONS IN PLACE. DENIES ANY NEEDS NESTOR. WILL CONTINUE TO MONITOR
--- NOTE | 2021-04-14 14:08 | NUR ---
SPOKE W/ [facility] FROM [facility]. [facility] REQUESTED UPDATED THERAPY INFORMATION FOR Pt FROM LAST FEW DAYS WHICH WAS PROVIDED. 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 STILL AWAITING RESPONSE ON INSURANCE AUTH FOR INPATIENT REHAB. [employer] - [phone] (PHONE)
[2021-04-14 15:33] VITALS: BP 120/75
--- NOTE | 2021-04-14 17:17 | NUR ---
DC planning efforts and needs discussed with pt's dtr Mable via phone. She lives in [place] and works fulltime. She does not lives with the pt but is home most weekends and stays with her mom. 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 She lives in a one level home with 3 steps to enter. No DME prior. Her employer is working on paperwork for her short term dis/sick leave benefits. Her insurance is through her employer. [facility] acute rehab has submitted additional clinical today to [facility] to support the auth request. They are awaiting their response. Mable is hopeful she can go to rehab here. Options for SNF/HH and potential care needs discussed. Mable indicates she would be able to take leave from work and care for her mom if needed. Should she need snf in the future she would be interested in [facility] or a facility [place] closer to her and pt's support network. The pt has another dtr who lives in [place]. Will f/u with pt/dtr once insurance response is rec'd. Support provided.
--- NOTE | 2021-04-14 17:50 | NUR ---
FAXED FACESHEET TO BRIANA/LASHAE AT [facility]. THEY WILL CHECK TO SEE IF THEY CAN ACCEPT INSURANCE AND LET US KNOW 04/15/21.
--- NOTE | 2021-04-14 17:55 | NUR ---
FMS TAKEN OUT PT TOLERATED IT WELL.
--- NOTE | 2021-04-14 18:22 | NUR ---
RECEIVED VOICEMAIL FROM [facility]/ [facility]. AUTHORIZATION FOR ACUTE REHAB WAS APPROVED BY THEIR ICING MIXER. APPROVED FOR 7 DAYS STARTING TODAY 04/14/21 W/ UPDATE DUE TO [facility] ON 04/21/21. [facility]'S PHONE IS [phone] AND FAX [phone]. AUTH #[id number]. Pt CAN ALSO ADMIT TOMORROW 04/15/[address] [facility] HENRY, HE WOULD PREFER TO KEEP Pt ON ACUTE UNTIL TOMORROW WITH PLAN FOR D/C TO REHAB ON 04/15/21. WILL NEED TO CALL [facility] W/ UPDATE ON ADMISSION DAY TO REHAB. SPOKE W/ LISA SILVA REGARDING THIS.
[2021-04-14 19:35] LABS: BE(vivo) 7.1 mmol/L (-2 to +3); HCO3 30.6 mmol/L (22.0-26.0); PCO2 39.3 mmHg (35.0-45.0); PO2 64.1 mmHg (80.0-100.0); pH 7.509 (7.360-7.450); sO2 94.3 % (92.0-98.0)
[2021-04-14 19:58] VITALS: BP 133/80
[2021-04-15 04:53] VITALS: BP 138/91
[2021-04-15 06:10] LABS: HEMATOCRIT 38.6 % (37.0-47.0); HEMOGLOBIN 13.1 gm/dL (12.0-15.0); MCH 29.6 pg (26.0-34.0); MCHC 33.8 g/dL (28.0-37.0); MCV 87.6 fL (80.0-100.0); RBC 4.4 mil/uL (4.20-5.00); RDW 14.4 % (10.5-14.5); WBC 8.6 thou/uL (4.0-11.0)
[2021-04-15 06:29] LABS: CALCIUM 9.2 mg/dL (8.5-10.1); CREATININE 0.6 mg/dL (0.6-1.0); POTASSIUM 3.1 mmol/L (3.5-5.1)
--- NOTE | 2021-04-15 07:54 | NUR ---
SLEPT PART OF SHIFT. REMAINS ORIENTED BUT FORGETFUL AND POOR SHORT TERM MEMORY. WORKING ON GOALS AND PLAN OF CARE FOR NOC. ASSIST TO TURN NEEDED. DENIES COMPLAINTS OF PAIN. REORIENT NEEDED. PLANS FOR REHAB TODAY.
[2021-04-15 08:00] VITALS: BP 141/79
[2021-04-15 12:00] VITALS: BP 143/85
[2021-04-15] MEDS ORDERED: IPRAT-ALBUT 0.5-3 ML INH (13:24)
[2021-04-15] MEDS ORDERED: LANTUS SUBQ (13:25)
[2021-04-15] MEDS ORDERED: MUCUS RLF DM E1 EACH PO (13:25)
[2021-04-15] MEDS ORDERED: PULMICORT0.5 MG/21 INH (13:25)
[2021-04-15] MEDS ORDERED: PREDNISONE 10 M10 M1 PO (13:26)
--- NOTE | 2021-04-15 13:52 | NUR ---
Pt dcing to [facility] acute rehab today. Their liason is calling pt's dtr to confirm the room number and visitor policy. [facility] cm to follow for dc planning. No covid now test required. Nursing to call report.
--- NOTE | 2021-04-15 16:07 | NUR ---
PATIENT REPORT CALLED TO RABIA LAZAR ON [facility]. NO QUESTIONS OR CONCERNS AT TIME OF REPORT. PATIENT INFORMED. TELE REMOVED. CARRINGTON REMOVED. PICC LEFT IN PLACE. PATIENT STABLE AT TIME OF TRANSFER.
== END 2021-04-15 16:13 | DRG 207 ==
LOC: ICU 18:16 → 2N 18:16 → EDSEX 18:16 → ICU 04-11 22:10 → 2N 04-12 23:59
PROVIDERS: Hospitalist; Internal Medicine Pulmonary Disease; Nurse Practitioner Family; Pediatrics; Specialist; ADMIT Hospitalist; ATTEND Hospitalist
PROC: XW033E5 Introduction of Remdesivir Anti-infective into Peripheral Vein, Percutaneous Approach, New Technology Group 5 (ICD-10-PCS; principal; 2021-03-25)
PROC: XW033H5 Introduction of Tocilizumab into Peripheral Vein, Percutaneous Approach, New Technology Group 5 (ICD-10-PCS; principal; 2021-03-25)
PROC: 5A0935A Assistance with Respiratory Ventilation, Less than 24 Consecutive Hours, High Flow/Velocity Cannula (ICD-10-PCS; 2021-03-26)
PROC: 02HV33Z Insertion of Infusion Device into Superior Vena Cava, Percutaneous Approach (ICD-10-PCS; 2021-03-26)
PROC: 5A09357 Assistance with Respiratory Ventilation, Less than 24 Consecutive Hours, Continuous Positive Airway Pressure (ICD-10-PCS; 2021-03-27)
PROC: 0BH18EZ Insertion of Endotracheal Airway into Trachea, Via Natural or Artificial Opening Endoscopic (ICD-10-PCS; 2021-03-28)
PROC: 5A1955Z Respiratory Ventilation, Greater than 96 Consecutive Hours (ICD-10-PCS; 2021-03-28)
PROC: 5A0935A Assistance with Respiratory Ventilation, Less than 24 Consecutive Hours, High Flow/Velocity Cannula (ICD-10-PCS; 2021-04-10)
PROC: 5A0935A Assistance with Respiratory Ventilation, Less than 24 Consecutive Hours, High Flow/Velocity Cannula (ICD-10-PCS; 2021-04-11)
DX: U07.1 COVID-19 (principal); J12.82 Pneumonia due to coronavirus disease 2019; G92 Toxic encephalopathy; J80 Acute respiratory distress syndrome; J15.9 Unspecified bacterial pneumonia; Z68.41 Body mass index [BMI] 40.0-44.9, adult; I10 Essential (primary) hypertension; D64.9 Anemia, unspecified; G47.33 Obstructive sleep apnea (adult) (pediatric); E11.22 Type 2 diabetes mellitus with diabetic chronic kidney disease; K21.9 Gastro-esophageal reflux disease without esophagitis; G89.29 Other chronic pain; M54.9 Dorsalgia, unspecified; M19.90 Unspecified osteoarthritis, unspecified site; E66.01 Morbid (severe) obesity due to excess calories; J45.909 Unspecified asthma, uncomplicated; G43.909 Migraine, unspecified, not intractable, without status migrainosus; Z87.891 Personal history of nicotine dependence; Z79.899 Other long term (current) drug therapy
CPT/HCPCS: 10078; 10081; 10203; 27000; 50455

== ENCOUNTER 2021-04-15 10:00 | Inpatient (IN) | payer OTHER ==
[~2021-04-15] VITALS: Ht 152.4 cm; Wt 118.4 kg
[2021-04-15] MEDS ORDERED: IPRAT-ALBUT 0.5-3 ML INH (13:24)
[2021-04-15] MEDS ORDERED: LANTUS SUBQ (13:25)
[2021-04-15] MEDS ORDERED: MUCUS RLF DM E1 EACH PO (13:25)
[2021-04-15] MEDS ORDERED: PULMICORT0.5 MG/21 INH (13:25)
[2021-04-15] MEDS ORDERED: PREDNISONE 10 M10 M1 PO (13:26)
--- NOTE | 2021-04-15 16:45 | NUR ---
PT ARRIVED TO UNIT FROM CCU VIA BED. PT GOT COVID 03/14 AND WAS TREATED AT HOME. PT CAME TO HOSPITAL AND WAS INTUBATED 03/28-. PT HAS OXYGEN ON 2.5L AT THIS TIME. NO SIGNS OF SOB OR COUGH. PT CARRINGTON WAS TAKEN OUT TODAY AT 1500. NO SIGNS OF VOIDING AT THIS TIME. PT HAS WEAKNESS TO RT ARM AND USES LEFT ARM TO RAISE UP RT ARM. PT HAS LOST WT DUE TO HOSPITALIZATION. PT WAS 330 AND NOW 261. PT LUNGS CLEAR AND DIMINSHED TO BASES. PT HAS HYPOACITVE BS. PT HAS SCAB TO LEFT UPPER ARM, PICC LINE TO LEFT ARM. PT STATED SHE HAD ANOTHER PICC PRIOR TO THIS ONE. PT HAS SCAB TO RT CHEEK ON FACE FROM INTUBATION COWAN. PT HAS BRUISES TO ABD FROM INJECTIONS. NO SIGNS OF EDEMA TO LOWER EXT. 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 HISTORY OF LYMPH NODE TAKEN OUT ON RT SIDE FROM RT CYST TAKEN OUT OF BREAST. HX OF DM, GERD, HTN, PNA, AND VAPOR USE. 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 PT ABLE TO RECALL CERTAIN THINGS THAT HAS HAPPENED PRIOR TO ADMIT. PT WAS HAVING WEIRD DREAMS ABOUT HER MOM, AND THINGS HAPPENING TO HER.
[2021-04-15 17:00] VITALS: BP 125/76
[2021-04-15 19:45] VITALS: BP 127/79
--- NOTE | 2021-04-16 01:06 | NUR ---
PT ASSESSMENT COMPLETED AND VSS. MEDS GIVEN ORDERED AND WELL TOLERATED. PT VOIDED LARGE AMOUNT IN BEDPAN. PT REMAINS CONFUSED. PLEASANT. SUPPORT FRIEND AT BEDSIDE. SAT WNL ON NC. ASST WITH FREQUENT REPOSITION FOR COMFORT. SLEEPING ON AND OFF. WILL CONTINUE TO MONITOR FREQUENTLY.
[2021-04-16 06:20] LABS: HEMATOCRIT 37.5 % (37.0-47.0); HEMOGLOBIN 12.6 gm/dL (12.0-15.0); MCH 29.4 pg (26.0-34.0); MCHC 33.6 g/dL (28.0-37.0); MCV 87.7 fL (80.0-100.0); RBC 4.28 mil/uL (4.20-5.00); RDW 14.5 % (10.5-14.5); WBC 5.5 thou/uL (4.0-11.0)
[2021-04-16 06:39] LABS: CALCIUM 8.7 mg/dL (8.5-10.1); CREATININE 0.6 mg/dL (0.6-1.0)
[2021-04-16 07:02] LABS: POTASSIUM 2.9 mmol/L (3.5-5.1)
[2021-04-16 07:10] VITALS: BP 123/71
--- NOTE | 2021-04-16 07:32 | NUR ---
PT VOIDED LARGE AMOUNTS 2 TIMES DURING THE NIGHT USING THE BEDPAN. BLADDER SCAN THIS MORNING WAS 0.
[2021-04-16 09:24] LABS: MAGNESIUM 1.9 mg/dL (1.8-2.4)
--- NOTE | 2021-04-16 15:21 | NUR ---
ASSUMED CARE OF PT AT 0700 THIS MORNING. PT IS RESTING IN BED AND IS A/OX3 AND STATED SHE DOES GET CONFUSED AT TIMES. SKIN IS INTACT WITH NO TENTING. PT TESTED POSITIVE FOR COVID 03/14. AC&HS, O2 @ 2.5L/HOUR, SCD'S IN PLACE, LT UA PICC, ASSESSMENTS CHARTED AND OTHERWISE UNREMARKABLE. SMALL SCAB NOTICED ON RT CHEEK AND LT KNEE. BOTH COVERED WITH BORDER FOAM. CALL LIGHT AND OTHER NEEDS ARE WITHIN REACH. PHYS THPY AND OT WILL BE WORKING WITH PT. PT HAS NO COMPLAINTS. MEDS AND TX GIVEN NEEDED AND SCHEDULED. WILL MONITOR AND NOTE ANY CHANGES.
[2021-04-16 22:00] VITALS: BP 126/79
--- NOTE | 2021-04-17 00:46 | NUR ---
PT ASSESSMENT COMPLETED AND VSS. MEDS GIVEN ORDERED AND WELL TOLERATED. FALL PRECAUTIONS IN PLACE. VOIDING MODERATE AMOUNT OF DARK YELLOW URINE PER BEDPAN. ASST WITH REPOSITION FOR COMFORT. PT ANXIOUS. PROVIDED MUCH EMOTIONAL. SAT WNL ON NC. RT TREATMENTS CONTINUE. PT SLEEPING WELL. WILL CONTINUE TO MONITOR FREQUENTLY.
[2021-04-17 07:15] VITALS: BP 120/75
--- NOTE | 2021-04-17 08:34 | NUR ---
PT LYING IN BED THIS AM. PT DENIES ANY PAIN. PT HAS OXYGEN ON 3L NC. PT IS NOT SOA. PT LBM TODAY. PT VOIDING WITHOUT ANY DIFFICULTY. PT HAS WEAKNESS TO LEGS BILATERALLY. PT UP WITH ASSIST X2 PERSONS. PT GETS TEARFUL ABOUT LOSS OF THIS PAST YEAR. PT HAS ABRASION TO RT CHEEK ON FACE, PT ALSO HAS OLD PICC LINE SITE ABOVE PICC LINE ON LEFT ARM.
--- NOTE | 2021-04-17 09:30 | NUR ---
PT WAS ABLE TO [place] [facility] [place] [facility] [place] PT VOIDED AT THIS TIME AND BACK TO [facility].
--- NOTE | 2021-04-17 11:46 | NUR ---
SPOKE TO DR. HENRY AND ORDER OBTAINED TO REMOVE PICC LINE. NO IV MEDS. LINE REMOVED PER POLICY
--- NOTE | 2021-04-17 15:00 | NUR ---
PT UP TO BSC TO VOID PRIOR TO TRANSFER BACK TO BED. PT WAS UP IN W/C ALL THIS AM. PT WANTED TO REST.
[2021-04-17 19:25] VITALS: BP 112/57
--- NOTE | 2021-04-18 01:04 | NUR ---
PT ASSESSMENT COMPLETED AND VSS. MEDS GIVEN ORDERED AND WELL TOLERATED. FALL PRECAUTIONS IN PLACE. VOIDING LARGE AMOUNT OF DARK YELLOW URINE PER BEDPAN. ASST WITH REPOSITION FOR COMFORT. SAT WNL ON NC. SLEEPING WELL. WILL CONTINUE TO MONITOR FREQUENTLY. INSULIN GIVEN WITH SNACK.
[2021-04-18 08:00] VITALS: BP 133/79
--- NOTE | 2021-04-18 08:40 | NUR ---
PT LYING IN BED THIS AM. PT DENIES ANY PAIN. PT HAS OXYGEN ON 2L NC. PT DOES STILL HAS SOME SLIGHT SOB WITH ACTIVITY. PT LUNGS CLEAR. PT USES BED RANKIN TO VOID. PT HAS BM COUPLE OF DAYS AGO. PT HAS SCD'S ON AT THIS TIME. PT HAVING FIRST DAY OF THERAPY TODAY.
--- NOTE | 2021-04-18 09:08 | NUR ---
WOUND CONSULT; THE PATIENT HAS NO WOUNDS, ONLY LOOSLY ADHERANT SCABS. ONE TO THE RIGHT SIDE OF FACE AND THE OTHER ON THE LEFT ARM. NO S/S OF INFECTION. NO NEED TO FOLLOW. RECCOMMENDATIONS; -PAINTED WITH BETADINE -d/c WOUND CONSULT. DISCUSSED WITH RABIA.
[2021-04-18 09:42] LABS: CALCIUM 8.9 mg/dL (8.5-10.1); CREATININE 0.5 mg/dL (0.6-1.0); MAGNESIUM 1.8 mg/dL (1.8-2.4); POTASSIUM 3.1 mmol/L (3.5-5.1)
--- NOTE | 2021-04-18 09:50 | NUR ---
HX of COVID. Chart review. Cm visited with daina at bedside. cm cont to wear face mask and shield during visit. intro to team meeting and discharge planning. Note she on o2 per nasal cannula and reports she never needed oxygen before. 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 no dme, manage own medication and drives vehicle. No hh or rehab in the past. Will cont following needed for dc needs.
--- NOTE | 2021-04-18 12:22 | NUR ---
PT RECIEVED KDUR 40MEQ PO FOR LOW K LEVEL. PT STATED K MAKES HER HAVE BM'S. WOUND CARE SEEN PT TODAY FOR ABRASION TO RT CHEEK AND LEFT UPPER ARM.
--- NOTE | 2021-04-18 12:46 | NUR ---
Assess due to new admit to inpatient rehab for debility following extended hospitalization/hx COVID. Visit with pt during lunch, states appetite slowly returning. Did eat 100% of all meals yesterday. States usual wt around 300 lb. Gained high weight 329 lb with fluid overload in ICU. Now 2 different wts 280 vs 261 lb which would represent significant loss. A1C 8.7-pt reports relatively new dx diabetes and was trying to change eating habits prior to hospitalization but had not received formal diabetes education. Would like some more information on diet once stabilizes on rehab unit and prior to discharge. Low nutrition risk
--- NOTE | 2021-04-18 16:21 | NUR ---
ADM KDUR 40MEQ X1 FOR LOWER K LEVEL. THIS IS SECOND DOSE TODAY.
--- NOTE | 2021-04-18 18:35 | NUR ---
PT HAD A GOOD FIRST DAY OF THERAPY. PT STATED SHE IS WORE OUT SINCE WORKING WITH THERAPY TODAY.
[2021-04-18 19:17] VITALS: BP 128/82
--- NOTE | 2021-04-18 23:39 | NUR ---
PT ASSESSMENT COMPLETED AND VSS. MEDS GIVEN ORDERED AND WELL TOLERATED. FALL PRECAUTIONS IN PLACE. VOIDING LARGE AMOUNT OF DARK YELLOW URINE PER BEDPAN. ASST WITH REPOSITION FOR COMFORT. INSULIN GIVEN ORDERED WITH SNACK. SLEEPING WELL AT THIS TIME. WILL CONTINUE TO MONITOR FREQUENTLY.
[2021-04-19 07:15] VITALS: BP 105/63
--- NOTE | 2021-04-19 10:41 | NUR ---
ASSUMED CARE AT 0700. PATIENT IS ALERT AND ORIENTED X4, BUT FORGETFUL. PATIENT HAS SOME LEFT SIDED WEAKNESS. LUNGS ARE DEMINISHED. 02 SAT 2-3 L PER N/C. CONINUES ON RESPIRATORY TX ORDERED. PATIENT IS UP WITH 1-2 STAFF AND GAIT BELT, WITH WALKER TO AMBULATE PATIENT IN THE [place]. FALL AND SAFETY PROTOCOLS IN PLACE. GERALD PAIN AT THIS TIME. LEFT ARM DRESSING IS DRY AND INTACT. CONTINUES TO PROGRESS TOWARDS D/C GOALS. WILL CONTINUE TO MONITER
--- NOTE | 2021-04-19 13:20 | NUR ---
Team meeting, recommendation, dressing mod assist for lower body. transfers max assist. 35ft fww. Cont. to requiring oxygen per nasal cannula. Patient spouse and still having hard times with emotion. Re team with dc 05/03 hh ( pt, ot, nursing,), daughter to stay with her for a while. Will need to follow up with pcp on driving and working. Fww at dc.
[2021-04-19 19:28] VITALS: BP 132/74
--- NOTE | 2021-04-20 00:52 | NUR ---
Assumed care on 04/19/21 @ 1900, Denies Shortness of Air on 2L of O2. Dressing on left arm removed at patient's request d/t itching from the wound care tape that was applied to reinforce the dressing. Dressing removed, entire area cleaned with normal salaine and 2x2 guaze. Picc site bruised, oinsertion site noted, no bleeding or drainage noted to site. 1" bandage applied. IV insertion site noted, no drainage redness or bleeding noted. 3.3 bandage applied. A pink area that patient reports is related to the abrasions on her cheek noted. 1" bandage applied. Toileted via bedpan, urine output noted. Will continue to monitor as per unit protocol.
[2021-04-20 07:40] LABS: HEMOGLOBIN 11.3 gm/dL (12.0-15.0); MCH 29.8 pg (26.0-34.0); MCHC 33.2 g/dL (28.0-37.0); MCV 89.8 fL (80.0-100.0); RBC 3.78 mil/uL (4.20-5.00); RDW 15.3 % (10.5-14.5); WBC 5.3 thou/uL (4.0-11.0)
--- NOTE | 2021-04-20 07:48 | NUR ---
ASSUMED CARE AT 0700. PATIENT IS ALERT AND ORIENETED X4,BUT FORGETFUL AT TIMES. PATIENT DIANA'S, DISH CLOTH INSPECTOR ARE EQUAL. LUNGS ARE DEMINISHED. 02 AT 2L PER N/C. PATIENT CONTINUES ON RESPIRATORY TX. UP WITH ASSIST OF 2 STAFF [place] BEL[place] [facility] [place] NADYA COLORED URINE. FALL AND SAFETY PROTOCOLS IN PLACE. DENIES PAIN AT THIS TIME. CONTINUES TO PROGRESS TOWARDS D/C GOALS. WILL CONTINUE TO MONITER.
[2021-04-20 07:50] LABS: CALCIUM 8.9 mg/dL (8.5-10.1); CREATININE 0.5 mg/dL (0.6-1.0); POTASSIUM 3.8 mmol/L (3.5-5.1)
[2021-04-20 08:00] VITALS: BP 133/86
--- NOTE | 2021-04-20 14:40 | NUR ---
spoke with her daughter vickie agrees with dcp, she did say the community is having a building appraiser for mom medical expensive on 05/01/21 if she can attend, but in not ready we understand. I will get flma paperwork up to hospital when bank has ready for mom. thank you per vickie.
--- NOTE | 2021-04-20 15:24 | NUR ---
1515 PATIENT WAS ABLE TO TRANSFER FROM W/C TO THE TOILET IN THE BATHROOM,BUT WAS NOT ABLE TO TRANSFER FROM THE TOILET TO HER W/C. SLIDE BOARD USED FROM TOILET TO W/C WITH A MAX ASSIST OF 2 STAFF AND GAIT BELT. THE SLIDE BOARD WAS THEN USED TO TRANSFER THE PATIENT FROM W/C TO THE BED. RESPIRATORY HERE TO DO TX. WILL CONTINUE TO MONITER.
[2021-04-20 19:06] VITALS: BP 130/89
--- NOTE | 2021-04-21 01:08 | NUR ---
PT ASSESSMENT COMPLETED AND VSS. MEDS GIVEN ORDERED AND WELL TOLERATED. FALL PRECAUTIONS IN PLACE. VOIDING LARGE AMOUNT PER BEDPAN. ASST WITH REPOSITION FOR COMFORT. INSULIN GIVEN ORDERED WITH SNACK. PT DENIES NEEDS. SAT WNL ON NC. PT WORRIED BECAUSE SHE IS NOT ABLE TO STAND VERY WELL. PROVIDED MUCH EMOTIONAL SUPPORT. SLEEPING WELL. WILL CONTINUE TO MONITOR FREQUENTLY.
[2021-04-21 08:03] VITALS: BP 138/97
--- NOTE | 2021-04-21 08:04 | NUR ---
ASSUMED CARE AT 0700. PATIENT IS ALERT AND ORIENTED X4. PATIENT DIANA'S, VOLUNTEER SERVICES MANAGER ARE EQUAL. LUNGS ARE DEMINISHED. CONTINUES ON 02 AT 2L PER N/C. PATIENT CONTINUES ON RESPIRATORY TX. ABD IS SOFT WITH BSX4. VOIDING NADYA COLORED URINE. UP IN BED FOR BREAKFAST. UP WITH MAX ASSIST 2 PEOPLE. FALL AND SAFETY PROTOCOLS IN PLACE. DENIES PAIN AT THIS TIME. COTINUES TO PROGRESS SLOWLY TOWARDS D/C GOALS. WILL CONTINUE TO MONITER.
[2021-04-21 20:00] VITALS: BP 140/81
--- NOTE | 2021-04-22 02:35 | NUR ---
PT ASSESSMENT COMPLETED AND VSS. MEDS GIVEN ORDERED AND WELL TOLERATED. FALL PRECAUTIONS IN PLACE. PT VOIDING LARGE AMOUNT PER BEDPAN. PT CONTINUES TO BE MORE ORIENTED. INSULIN GIVEN ORDERED. SNACK PROVIDED AT HS. SLEEPING WELL AT THIS TIME. WILL CONTINUE TO MONITOR FREQUENTLY. SAT WNL ON 1L NC.
[2021-04-22 08:00] VITALS: BP 128/72
--- NOTE | 2021-04-22 13:23 | NUR ---
Chart review, cont. with discharge planning as needed. Anticipated dc on or with home health.
--- NOTE | 2021-04-22 16:29 | NUR ---
PT ALERT AND ORIENTED TIMES FOUR. VSS. PT DENIES PAIN. SOA ON EXCERTION. PT WORKS WELL WITH PT/OT. PT UP TO BSC WITH STANDBY ASSIST. PT TOLERATES MEDS AND MEALS. PT DAUGHTER AT BEDSIDE THIS EVENING. PT PROGRESSING TOWRADS POC GOALS.
[2021-04-22 20:00] VITALS: BP 155/90
--- NOTE | 2021-04-22 23:49 | NUR ---
PT ASSESSMENT COMPLETED AND VSS. MEDS GIVEN ORDERED AND WELL TOLERATED. FALL PRECAUTIONS IN PLACE. UP TO THE BATHROOM WITH ASST/GAIT/WHEELCHAIR PIVOT. PT WAS ABLE TO STAND WITH ASST AND PIVOT. VOIDING LARGE AMOUNT OF YELLOW URINE. BG 68 THIS EVENING. SNACK PROVIDED AND NOW BG IS 96. ASST WITH REPOSITION FOR COMFORT. SLEEPING WELL AT THIS TIME. WILL CONTINUE TO MONITOR FREQUENTLY.
--- NOTE | 2021-04-23 07:00 | NUR ---
PT SAT 93-94 ON RA WITH SPOT CHECKS DURING THE NIGHT. THIS MORNING AT 0500 AM SAT 91%. PLACED PT ON NC AGAIN.
[2021-04-23 07:15] VITALS: BP 145/93
--- NOTE | 2021-04-23 15:12 | NUR ---
ASSUMED CARE AT 0700. PATIENT IS ALERT AND ORIENTED X4. PATIENT DIANA'S, PATIENT IS UP TO THE BATHROOM TO VOID NADYA COLORED URINE BY STAND PIVOT SIT. LUNGS ARE CLEAR AND DEMINISHED. 02 AT 1L PER N/C. PATIENT CONTINUES ON RESPIRATORY TXS. ABD IS SOFT WITH BSX4. FALL AND SAFETY PROTOCOLS IN PLACE. DENIES PAIN AT THIS TIME. CONTINUES TO PROGRESS SLOWLY TOWARDS D/C GOALS. WILL CONTINUE TO MONITER.
[2021-04-23 17:26] VITALS: BP 158/107
[2021-04-23 19:15] VITALS: BP 145/93
--- NOTE | 2021-04-23 23:11 | NUR ---
PT ASSESSMENT COMPLETED AND VSS. MEDS GIVEN ORDERED AND WELL TOLERATED. FALL PRECAUTIONS IN PLACE. PT WALKED TO THE BATHROOM WITH ASST/GAIT/WALKER. STEADY. VOIDING LARGE AMOUNT OF DARK YELLOW URINE. SAT SPOT CHECK 93-94% ON RA. SUPPORTIVE DAUGHTER AT BEDSIDE EARLY DURING SHIFT. PT VERY TIRED. SLEEPING WELL AT THIS TIME. WILL CONTINUE TO MONITOR FREQUENTLY.
[2021-04-24 07:38] VITALS: BP 175/102
--- NOTE | 2021-04-24 08:49 | NUR ---
ASSUMED CARE AT 0700. PATIENT IS ALERT AND ORIENTED X4. PATIENT DIANA'S, FURNITURE MOVER DRIVER ARE EQUAL. LUNGS ARE CLEAR AND DEMINISHED. PATIENT CONTINUES ON RA WITH O2 STAT AT 95% PATIENT CONTINUES ON RESPIRATORY TX. ABD IS SOFT WITH BSX4. UP WITH GAIT BELT AND WALKER AND ASSIST OF 1 STAFF TO AMBULATE TO THE BATHROOM TO VOID NADYA COLORED URINE. FALL AND SAFETY PROTOCOLS IN PLACE, DENIES PAIN AT THIS TIME. CONTINUES TO PROGRESS TOWARDS D/C GOALS. WILL CONTINUE TO MONITER.
[2021-04-24 08:54] VITALS: BP 175/102
[2021-04-24 11:12] VITALS: BP 152/84
[2021-04-24 19:48] VITALS: BP 136/76
--- NOTE | 2021-04-25 04:24 | NUR ---
ASSUMED CARE AT 1900 OF 04/24. PATIENT IS A&OX4. DENIES PAIN AND SOB. MODERATE ASSIST OF 1 USING GB AND WALKER TO TRANSFER AND AMBULATE TO THE BATHROOM. SOB NOTED AT EXERTION, PATIENT ABLE TO CATCH BREATH AFTER RESTING, O2Sat REMAINS ABOVE 92%. CURRENTLY ON ROOM AIR AND [id number] SPOT CHECKS IS 95%. PATIENT HAD A BM. APPEARS TO BE SLEEPING ON AND OFF DURING HOURLY ROUNDS. FALL PRECAUTIONS IN PLACE, CALL LIGHT W/IN REACH. WILL CONTINUE TO MONITOR.
[2021-04-25 07:15] VITALS: BP 154/91
--- NOTE | 2021-04-25 09:29 | NUR ---
Nutrition follow up: Pt noted with stable weight. Intakes remain good with >75% avg at meals. BM 04/25. BS range 101-236 x 48 hrs. SS insulin and oral DM meds in place; on steroid. DM education to be done prior to d/c per pt request. Low nutrition risk.
--- NOTE | 2021-04-25 11:03 | NUR ---
ASSUMED CARE AT 0700. PATIENT IS ALERT AND ORIENTEDX4. PATIENT DIANA'S, BACK UP WORKER ARE EQUAL. LUNGS ARE CLEAR AND DEMINISHED. PATIENT CONTINUES ON RESPIRATORY TX. ABD IS SOFT WITH BSX4. UP TO THE BATHROOM WITH ASSIST OF 1 STAFF AND WALKER AND GAIT BELT. VOIDING NADYA COLORED URINE. UP IN W/C FOR MEALS. FALL AND SAFETY PROTOCOLS IN PLACE. DENIES PAIN AT THIS TIME. CONTINUES TO PROGRESS TOWARDS D/C GOALS. WILL CONTINUE TO MONITER.
[2021-04-25 19:12] VITALS: BP 169/98
--- NOTE | 2021-04-26 04:29 | NUR ---
ASSUMED CARE AT 1900 OF 04/25. A&OX4. VSS. ASSIST OF 1 USING GB AND WALKER FOR TRANSFERS AND AMBULATION TO THE BATHROOM TO VOID YELLOW URINE. SLEEPING DURING HOURLY ROUNDS, ABLE TO TURN SELF IN BED. FALL PRECAUTIONS IN PLACE, CALLLIGHT W/IN REACH WILL CONTINUE TO MONITOR.
[2021-04-26 07:15] VITALS: BP 125/71
[2021-04-26 07:31] LABS: ABSOLUTE NEUTROPHILS 5.3 thou/uL (1.4-8.2); BASOPHILS 0.5 % (0.0-2.0); EOSINOPHILS 0.7 % (0.0-3.0); HEMATOCRIT 34.3 % (37.0-47.0); HEMOGLOBIN 11.5 gm/dL (12.0-15.0); LYMPHOCYTES 26.2 % (24.0-44.0); MCH 29.6 pg (26.0-34.0); MCHC 33.5 g/dL (28.0-37.0); MCV 88.3 fL (80.0-100.0); MONOCYTES 9.7 % (1.0-8.0); PLATELET COUNT 238 thou/uL (150-400); POLYS 62.9 % (36.0-66.0); RBC 3.88 mil/uL (4.20-5.00); RDW 14.7 % (10.5-14.5); WBC 8.4 thou/uL (4.0-11.0)
[2021-04-26 07:46] LABS: ANION GAP 9 mmol/L (7-16); BUN 15 mg/dL (7-18); CALCIUM 8.9 mg/dL (8.5-10.1); CHLORIDE 104 mmol/L (98-107); CO2 30 mmol/L (21-32); CREATININE 0.5 mg/dL (0.6-1.0); GLUCOSE 111 mg/dL (74-106); MAGNESIUM 1.7 mg/dL (1.8-2.4); POTASSIUM 3.4 mmol/L (3.5-5.1); SODIUM 143 mmol/L (136-145)
[2021-04-26 08:00] VITALS: BP 125/71
--- NOTE | 2021-04-26 11:11 | EKG ---
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: KEEGAN : 1970 Requested By: Yeimy Phoenix Order Number: [id number] MD: Nilton Ospina Measurements Intervals Raphine Rate: 83 P: 49 ID: [id number] QRS: 0 QRSD: 98 T: 36 QT: 377 QTc: 443 Interpretive Statements Sinus rhythm Abnormal R-wave progression, late transition Probable left ventricular hypertrophy Baseline wander in lead(s) V4 No previous ECG available for comparison Electronically Signed On 04-26-2021 11:10:59 CDT by Nilton Ospina [email or web address] <ELECTRONICALLY SIGNED> By: Nilton Ospina MD, [facility] 04/26/21 1110 05 05 Nilton Ospina MD, FACC /EPI
--- NOTE | 2021-04-26 12:28 | NUR ---
team meeting recommendation: had ekg r/t heaviness in chest and feeling better. loose stools. On Room air and still gets SOA but recoveries quickly. Change dc date to 04/29, with improvements, HH ( pt, ot, nursing, ). FWW.
[2021-04-26 13:41] LABS: TROPONIN-I <0.06 ng/mL (<0.06)
--- NOTE | 2021-04-26 17:15 | NUR ---
ASSUMED CARE OF PT AT 0700. PT A&OX4. WILL CONTINUE TO MONITOR
[2021-04-26 19:15] VITALS: BP 139/85
--- NOTE | 2021-04-27 04:24 | NUR ---
ASSUMED CARE AT 1900 OF 04/26. PATIENT IS A&OX4, DENIES PAIN OR SOB. ASSIT OF 1 USING GB AND WALKER FOR TRANSFERS AND ABMULATION TO BATHROOM TO VOID YELLOW URINE. PATIENT REPORTED FEELING HOT AND SWEATY, BG CHECKED AROUND 0200 WAS 87. DENIES DIZZINESS, BLURRED VISION OR WEAKNESS. PATIENT GIVEN ORANGE JUICE AND SOME SNACKS. CALL LIGHT WITHIN REACH, WILL CONTINUE TO MONITOR.
[2021-04-27 07:15] VITALS: BP 132/83
--- NOTE | 2021-04-27 10:32 | NUR ---
ASSUMED CARE AT 0700. PATIENT IS ALERT AND ORIENTEDX4. PATIENT DIANA'S, RETAIL BANKING MANAGER ARE EQUAL. LUNGS ARE CLEAR AND DEMINISHED. ABD IS SOFT WITH BSX4. PATIENT UP WITH ASSIST OF 1 STAFF AND GAIT BELT TO AMBULATE TO BATHROOM TO VOID NADYA COLORED URINE. UP ON SIDE OF BED FOR MEALS. FALL AND SAFETY PROTOCOLS IN PLACE. DENIES PAIN AT THIS TIME. CONTINUES TO PROGRESS SLOWLY TOWARDS D/C GOALS. WILL CONTINUE TO MONITER.
--- NOTE | 2021-04-27 11:09 | NUR ---
cm spoke with daughter vickie, via phone call. she agree with dcp. vickie and daina good friend will pick her up on sunday, only one will come in to get her to the car. Dc earlier in day r/t long drive home. Provider plus will deliver fww prior to dc on . Cont working on hh that goes to [place] ADA paper work went out in mail today.
--- NOTE | 2021-04-27 15:49 | HC ---
[facility] [place] [address] CONSULTATION Name: NAGI ESCUDERO Room #: 503- ADM IN M.R.#: [id number] Admission: 04/15/21 Attend Phys: Juan Antonio Connelly MD Discharge: Date of : 66 Report #: [id number] THIS REPORT FOR: cc: ZULMA - [facility] family physician/PCP ZULMA - [facility] family physician/PCP Robinson Gregorio PhD ~ DATE OF SERVICE: 04/25/2021 NEUROBEHAVIORAL STATUS EXAM ATTENDING PHYSICIAN: Juan Antonio Connelly MD PROGRESSIVE CARE NURSE: Robinson Gregorio, PhD CLINICAL PRESENTATION: The patient is a 50-year-old female, admitted to the rehabilitation unit at [facility] for a comprehensive inpatient rehabilitation program. She was admitted to the hospital on 03/26/2021 with COVID-19 pneumonia and respiratory failure. She was diagnosed on 03/14/2021 with COVID-19 plus and initially treated at home. Her condition deteriorated leading to her hospitalization. She was admitted to ICU and intubated from 03/28/2021 to 04/09/2021. The patient was given comprehensive treatment including remdesivir, steroids and antibiotics. The patient was encephalopathic following extubation with paranoid behaviors. Her diagnoses on admission to the rehabilitation unit was critical illness myopathy, acute toxic encephalopathy, COVID-19, acute respiratory failure, on ventilator; dysphagia, type 2 diabetes mellitus with an A1c of 8.7, asthma, obstructive sleep apnea with home CPAP and noncompliance, obesity, anemia, hypertension and hypokalemia. A complete description of her medical condition and history can be found in her medical records. Neuropsychological consultation was requested to provide assistance in the assessment of cognitive and emotional status and to provide recommendations and services. Prior to this most recent admission, the patient was living independently at her home. Her is reported to have in August of 2020. She has two children. 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 She is a high school graduate. She does not report a prior history of treatment for depression or anxiety. She was independent with driving and instrumental activities of daily living prior to this most recent medical event. TECHNIQUES UTILIZED: Clinical interview, review of medical records, staff consultation and behavioral observation, mini mental status exam 2 standard version, brief verbal fluency assessment and clock drawing. EXAMINATION FINDINGS: The patient was alert and cooperative with the [facility] [address] [place] [address] CONSULTATION Name: NAGI ESCUDERO Room #: 503-P [facility] IN M.R.#: [id number] Admission: 04/15/21 Attend Phys: Juan Antonio Connelly MD Discharge: Date of : 66 Report #: [id number] assessment. She accurately described events surrounding her admission. There is no evidence of aphasia. Her thoughts are logical and goal oriented. There is no evidence of thought disorder. She does not report auditory or visual hallucinations. She describes her symptoms to include depression, anxiety, inconsistent sleep, decreased speed of processing and that she is more easily distracted. Her daughter indicates that the initial period of confusion and disorientation appears to have resolved, although she does not feel like her mother's functioning is back to within normal limits. Performance on the MMSE 2 brief version is within normal limits with a raw score of 15 and 16. She was 2/3 for immediate recall of 3 items after a brief time delay and distraction. Performance on the MMSE 2 standard version was of 26/30. She was 2/5 for serial sevens, suggesting mild difficulty with concentration. Clock drawing was within normal limits. Brief verbal fluency assessment was a raw score of 20 for letter and 20 for category which is within normal limits for single category and single letter. Her delirium appears to have resolved. Currently, subtle to mild neurocognitive deficits may remain. Adjustment disorder with depression and anxious mood is suggested. Speech therapy assessments mild cognitive deficits and functional memory. DIAGNOSTIC IMPRESSION: Adjustment disorder with anxiety and depressed mood. Subtle to Mild Neurocognitive deficits -- delirium, resolved. RECOMMENDATIONS: The patient will benefit from psychological counseling to assist in her adjustment upon return home. If cognitive symptoms persist, an outpatient neuropsych assessment will be of benefit to clarify cognitive status. She is currently alert and oriented and showing a good return to normal cognition. Brief monitoring of medication, finances and nutrition upon return home to insure safety. Thank you very much for allowing me to provide the consultation on this patient. <ELECTRONICALLY SIGNED> By: Robinson Gregorio, PhD 04/27/21 1549 [id number] Robinson Gregorio, PhD /nt
[2021-04-27 19:10] VITALS: BP 145/78
--- NOTE | 2021-04-28 04:02 | NUR ---
ASSUMED CARE AT 1900 OF 04/27. PATIENT IS A&OX4, DENIES PAIN AND SOB. MODIFIED INDEPENDENT USING A WALKER TO AMBULATE. CALL LIGHT PLACED W/IN REACH. PATIENT IS SLEEPING DURING HOURLY ROUNDS. WILL CONTINUE TO MONITOR.
[2021-04-28 08:00] VITALS: BP 169/105
--- NOTE | 2021-04-28 09:40 | NUR ---
ramiro colon does not go to where patient lives. home health referral sent to [facility] to see if they can accept.
--- NOTE | 2021-04-28 15:47 | NUR ---
ASSUMED CARE OF PT AT 0700. PT A&OX4. PT IS MOD I IN ROOM. PT WORKING WITH THERAPIES AND SHOULD DC TOMORROW.
--- NOTE | 2021-04-28 17:19 | NUR ---
FAXED HOME HEALTH REFERRAL TO [facility] AND CALLED AND LEFT MESSAGE AT [facility]. RECEIVED REFERRAL FROM IAIN/DRIVER'S LICENSE EXAMINER AT [facility]. PATIENT GOES TO [facility] AND SEE'S OKSANA ARGUETA NP AT [phone]. [facility]- P [phone] ([place]) [facility]- P [phone]; FAX [phone] [facility] P [phone]; FAX [phone]
[2021-04-28 19:04] VITALS: BP 156/92
--- NOTE | 2021-04-29 02:47 | NUR ---
assumed care approx 1900 evening 04/28. pt alert and oriented x4, appropriate and cooperative. pt stated she was happy she was being discharged on Sunday 04/29. pt modified indep in room. pt appears to be sleeping soundly. call light in reach. will continue to monitor.
[2021-04-29 08:00] VITALS: BP 119/74
--- NOTE | 2021-04-29 08:00 | NUR ---
ASSUMED CARE AT 0700. PATIENT IS ALERT AND ORIENTED X4. PATIENT DIANA'S, INTERIOR DESIGNER ARE EQUAL. LUNGS ARE CLEAR. ABD IS SOFT WITH BSX4. UP IN BED FOR MEALS. PATIENT IS MOD/I IN ROOM WITH WALKER. VOIDING NADYA COLORED URINE. FALL AND SAFETY PROTOCOLS IN PLACE. DENIES PAIN AT THIS TIME. CONTINUES TO PROGRESS TOWARDS D/C GOALS. PLAN D/C TO HOME LATER TODAY. WILL CONTINUE TO MONITER.
[2021-04-29] MEDS ORDERED: ZINC SULFATE50 MG PO (09:27)
[2021-04-29] MEDS ORDERED: LISINOPRIL10 MG PO ×2 (09:27→16:38)
[2021-04-29] MEDS ORDERED: VITAMIN D325 MC2 PO (09:27)
[2021-04-29] MEDS ORDERED: VITAMINC500 PO (09:27)
[2021-04-29] MEDS ORDERED: VITAMIN B-1100 M2 PO (09:27)
[2021-04-29] MEDS ORDERED: METFORMIN HCL500 MG PO (09:27)
--- NOTE | 2021-04-29 12:06 | NUR ---
still trying to found hh in [facility] area. Called and left 3 message with [facility].
[2021-04-29 13:05] VITALS: BP 119/74
[2021-04-29 13:09] VITALS: BP 119/74
[2021-04-29 13:15] VITALS: BP 119/74
--- NOTE | 2021-04-29 13:16 | NUR ---
CONFIRMED WITH [facility] THAT THEY CAN ACCEPT PATIENT AND WILL CONTACT HER ON SUNDAY (04/30/21) TO SET UP SERVICES. FAXED DISCHARGE ORDERS AND SUMMARY. WILL CONFIRM THEY RECEIVED. [facility]- P [phone]; FAX [phone]
[2021-04-29 13:18] VITALS: BP 119/74
--- NOTE | 2021-04-29 14:16 | NUR ---
DISCHARGE INSTRUCTIONS GIVEN TO PATIENT AND DAUGHTER. PATIENT VERBALIZED UNDERSTANDING. NEW SCRIPTS SENT TO PATIENTS PHARMACY IN [facility]. PATIENT AMBULATED FROM BED TO W/C INDEPENDENTLY AND IS MOD/I IN ROOM. PATIENT LEFT UNIT IN GOOD CONDTION WITH ALL OF HER BELONGINGS AND HER D/C INSTRUCTIONS. PATIENT TRANSFERED FROM W/C TO CAR INDEPENDENTLY.
--- NOTE | 2021-05-02 15:04 | PLAN ---
[facility] [place] [address] REHAB UNIT PLAN OF CARE Name: NAGI ESCUDERO Room #: 503-P [facility] IN M.R.#: [id number] Admission: 04/15/21 Attend Phys: Juan Antonio Connelly MD Discharge: 04/29/21 Date of : 66 Report #: [id number] THIS REPORT FOR: cc: ZULMA - No family physician/PCP FAM - No family physician/PCP Juan Antonio Connelly MD ~ DATE OF SERVICE: 04/18/2021 PROGRESS NOTE AND OVERALL PLAN OF CARE HISTORY OF PRESENT ILLNESS: The patient is seen today. She is in no distress. Temperature 97.7, pulse 66, respirations 18, blood pressure 120/75. She is currently on 1.5 liters nasal cannula. She follows basic 1-step commands. She is on a regular diet with thin liquids. Transfers are mod assist with bed mobility, min assist. She is dependent lower body dressing, independent upper body dressing. ASSESSMENT: 1. Critical illness myopathy. 2. Acute toxic encephalopathy. 3. COVID-19, acute respiratory failure on the ventilator from 03/28/2021 through 04/09/2021. 4. Dysphagia. 5. Diabetes mellitus type 2, elevated hemoglobin A1c. 6. History of asthma with obstructive sleep apnea, was on home CPAP with noncompliance. 7. Obesity. 8. Anemia. 9. Hypertension. 10. Hypokalemia. PLAN: The overall plan of care is based on the pre-admit screen and information garnered from therapy assessments. 1. Estimated length of stay is probably 14-21 days. 2. Medical prognosis is reasonably good. 3. Anticipated interventions includes the interdisciplinary acute inpatient rehabilitation program. 4. Anticipated functional outcomes would be for the patient to improve as far as transfers, mobility, ADLs, gait and cognition, so that she can return back to the home setting. 5. Discharge destination would be back home. She does live by herself, has a daughter that comes in on the weekends. She worked at a [employer], she tells me. 6. Expected therapy by discipline includes PT, OT and speech 1 hour per day each 5 days a week throughout the duration of [place] [address] REHAB UNIT PLAN OF CARE Name: NAGI ESCUDERO Room #: 503-P [facility].#: [id number] Admission: 04/15/21 Attend Phys: Juan Antonio Connelly MD Discharge: 04/29/21 Date of : 66 Report #: [id number] ADDENDUM: The patient's prognosis for significant practical improvement within a reasonable period of time appears good. Given the patient's complex medical condition and risk of further medical complication, rehabilitation services could not be safely provided at the lower level of care such as a halfway facility. <ELECTRONICALLY SIGNED> By: Juan Antonio Connelly MD 05/02/21 1504 [id number] Juan Antonio Connelly MD /ann
== END 2021-04-29 14:25 | disposition home health service (06) | DRG 91 ==
PROVIDERS: Nurse Practitioner; Nurse Practitioner Family; ADMIT Physical Medicine & Rehabilitation; ATTEND Physical Medicine & Rehabilitation
DX: G72.81 Critical illness myopathy (principal); G92 Toxic encephalopathy; J96.00 Acute respiratory failure, unspecified whether with hypoxia or hypercapnia; E43 Unspecified severe protein-calorie malnutrition; Z68.43 Body mass index [BMI] 50.0-59.9, adult; R13.10 Dysphagia, unspecified; J45.909 Unspecified asthma, uncomplicated; G47.33 Obstructive sleep apnea (adult) (pediatric); D64.9 Anemia, unspecified; E11.65 Type 2 diabetes mellitus with hyperglycemia; I10 Essential (primary) hypertension; E87.6 Hypokalemia; K21.9 Gastro-esophageal reflux disease without esophagitis; F43.23 Adjustment disorder with mixed anxiety and depressed mood; G31.84 Mild cognitive impairment of uncertain or unknown etiology; E66.01 Morbid (severe) obesity due to excess calories; D69.6 Thrombocytopenia, unspecified; E83.42 Hypomagnesemia; Z86.16 Personal history of COVID-19; Z79.899 Other long term (current) drug therapy; Z79.4 Long term (current) use of insulin; Z90.11 Acquired absence of right breast and nipple; Z99.81 Dependence on supplemental oxygen; Z87.01 Personal history of pneumonia (recurrent); Z87.891 Personal history of nicotine dependence; Z91.19 Patient's noncompliance with other medical treatment and regimen
CPT/HCPCS: 10112